=== PATIENT | male | born 1980 | race Caucasian/White ===

== ENCOUNTER 2018-08-29 16:22 | Emergency (ER) | payer SELFPAY ==
[~2018-08-29] VITALS: Ht 198.1 cm; Wt 74.4 kg
[~2018-08-29 16:22] MED LIST: ALPR0.25 PO
[2018-08-29] MEDS ORDERED: ASPIRIN 81 MG TAB.CHEW PO ONE (16:30)
[2018-08-29 16:31] VITALS: BP 126/79
--- NOTE | 2018-08-29 16:41 | PHYS DOC ---
Past History Past Medical History: No Pertinent History (JULIANA HARRIS DO) Past Medical History: Bronchitis (FAMILIA ABDI MD) Past Surgical History: No Surgical History (JULIANA HARRIS DO) Smoking: Cigarettes, Greater than 1 pack/day Alcohol Use: Heavy Drug Use: Marijuana (JULIANA HARRIS DO) Adult General Chief Complaint Chief Complaint: CHEST PAIN HPI HPI Patient is a 38-year-old male presents with chest discomfort for the past 5 days. It has been waxing and waning in nature. There is a respirophasic component to it. Left chest. No radiation. Increased cough. No recent travel, no known trauma, no known hypercoagulable state. Cough does make the discomfort worse. Nothing seems to make it better. (JULIANA HARRIS DO) Review of Systems Review of Systems Constitutional: Denies fever or chills [] Eyes: Denies change in visual acuity, redness, or eye pain [] HENT: Denies nasal congestion or sore throat [] Respiratory: Denies cough or shortness of breath [] Cardiovascular: No additional information not addressed in HPI [] GI: Denies abdominal pain, nausea, vomiting, bloody stools or diarrhea [] : Denies dysuria or hematuria [] Musculoskeletal: Denies back pain or joint pain [] Integument: Denies rash or skin lesions [] Neurologic: Denies headache, focal weakness or sensory changes [] Endocrine: Denies polyuria or polydipsia [] All other systems were reviewed and found to be within normal limits, except as documented in this note. (JULIANA HARRIS DO) Current Medications Current Medications Current Medications Medications (Trade) Dose Ordered Sig/Monika Start Time Stop Time Status Last Admin Dose Admin Aspirin (Children'S Aspirin) 324 mg 1X ONCE 08/29/18 16:30 08/29/18 16:31 UNV (JULIANA HARRIS DO) Allergies Allergies Allergies Coded Allergies Type Severity Reaction Last Updated Verified No Known Drug Allergies 03/19/14 No (JULIANA HARRIS DO) Physical Exam Physical Exam Constitutional: Well developed, well nourished, mild discomfort, non-toxic appearance. [] HENT: Normocephalic, atraumatic, bilateral external ears normal, oropharynx moist, no oral exudates, nose normal. [] Eyes: PERRLA, EOMI, conjunctiva normal, no discharge. [] Neck: Normal range of motion, no tenderness, supple, no stridor. [] Cardiovascular:Heart rate regular rhythm, no murmur [] Lungs & Thorax: Bilateral breath sounds clear to auscultation, tenderness to palpation in the left chest, midaxillary line, third intercostal space. This re- creates his pain. [] Abdomen: Bowel sounds normal, soft, no tenderness, no masses, no pulsatile masses. [] Skin: Warm, dry, no erythema, no rash. [] Back: No tenderness, no CVA tenderness. [] Extremities: No tenderness, no cyanosis, no clubbing, ROM intact, no edema. [] Neurologic: Alert and oriented X 3, normal motor function, normal sensory function, no focal deficits noted. [] Psychologic: Affect normal, judgement normal, mood normal. [] (JULIANA HARRIS DO) EKG EKG EKG shows a sinus rhythm at 83 bpm, normal axis, QTC 414 ms, no ST elevations.[] (JULIANA HARRIS DO) Radiology/Procedures Radiology/Procedures [] (JULIANA HARRIS DO) Radiology/Procedures My interpretation chest x-ray shows bilateral scarring, COPD emphysematous changes. CT chest shows COPD/emphysema changes. No obvious pulmonary embolism. Does have pleural thickening and scarring at apexes. No significant change from CT 11:30 at 2014. See formal reports when available. (FAMILAI ABDI MD) Course & Med Decision Making Course & Med Decision Making Pertinent Labs and Imaging studies reviewed. (See chart for details) ED course: Patient arrived, was placed in bed, and tolerated exam well. He was transferred to and from radiology with any complications. He reported feeling better after the aspirin. Patient care is endorsed to the nighttime physician at [address] chest angiogram pending. Discussed findings available and need for CT with patient and his .[] (JULIANA HARRIS DO) Course & Med Decision Making Offered admission for patient patient declines admission. Encouraged patient to follow-up primary care. Patient strongly advised to quit smoking. Discussed CT f indings and chest x-ray findings. We'll treat patient for bronchitis and pleurisy at this time. Patient encouraged take a daily aspirin. Patient take prednisone 50 mg day for 5 days. Take his Zithromax 250 a day. Patient uses MDI 2 puffs 4 times a day. Patient to continue Tylenol and ibuprofen for pain. Patient strongly encouraged to stop smoking. Patient encouraged to get out inez ent stress testing. Patient encourage return anytime if he wishes to complete cardiac observation and admission. Reviewed cardiac history appearance father at age 64 liver failure, mother age 65 due to breast cancer. Re-exam shows scattered wheezes. Still has some pleuritic pain with deep breaths and cough. No cording in legs. Monitor shows a normal sinus rhythm. Patient denies any history of pulmonary embolisms or DVTs with him or family members. Pt. insistent of discharge seems aware of risks. Impression 1. Chest wall pain-pleurisy 2. COPD/emphysema 3. Tobacco use 4. Mild elevation of white count 13.3 5. Elevated d-dimer 1.79 6. Alcohol use- (FAMILIA ABDI MD) Dragon Disclaimer Dragon Disclaimer This electronic medical record was generated, in whole or in part, using a voice recognition dictation system. (JULIANA HARRIS DO) Departure Departure: Referrals: PCP,NO (PCP) Scripts Prednisone (PREDNISONE) 50 Mg Tablet 50 MG PO DAILY for bronchitis and pleurisy for 5 Days, #5 TAB Prov: FAMILIA ABDI MD 08/29/18 Azithromycin (ZITHROMAX) 250 Mg Tablet 250 MG PO DAILY for ANTI-BIOTIC for 5 Days, #5 TAB 0 Refills Prov: FAMILIA ABDI MD 08/29/18 Discharge Summary Visit Information Final Diagnosis Problems Medical Problems: (1) Bronchitis Status: Acute (2) Chest wall pain Status: Acute (FAMILIA ABDI MD) Brief Hospital Course Allergies Allergies Coded Allergies Type Severity Reaction Last Updated Verified No Known Drug Allergies 03/19/14 No Vital Signs Vital Signs Date Time Temp Pulse Resp B/P (MAP) Pulse Ox O2 Delivery O2 Flow Rate FiO2 08/29/18 16:31 98.5 86 20 96 Room Air Lab Results Laboratory Tests Test 08/29/18 16:42 08/29/18 17:10 08/29/18 17:30 White Blood Count 13.3 x10^3/uL (4.0-11.0) Red Blood Count 4.71 x10^6/uL (4.30-5.70) Hemoglobin 15.4 g/dL (13.0-17.5) Hematocrit 45.7 % (39.0-53.0) Mean Corpuscular Volume 97 fL (79-100) Mean Corpuscular Hemoglobin 33 pg (25-35) Mean Corpuscular Hemoglobin Concent 34 g/dL (31-37) Red Cell Distribution Width 13.8 % (11.5-14.5) Platelet Count 351 x10^3/uL (140-400) Neutrophils (%) (Auto) 70 % (31-73) Lymphocytes (%) (Auto) 20 % (24-48) Monocytes (%) (Auto) 8 % (0-9) Eosinophils (%) (Auto) 1 % (0-3) Basophils (%) (Auto) 1 % (0-3) Neutrophils # (Auto) 9.3 x10^3uL (1.8-7.7) Lymphocytes # (Auto) 2.7 x10^3/uL (1.0-4.8) Monocytes # (Auto) 1.1 x10^3/uL (0.0-1.1) Eosinophils # (Auto) 0.1 x10^3/uL (0.0-0.7) Basophils # (Auto) 0.2 x10^3/uL (0.0-0.2) Prothrombin Time 10.4 SEC (9.4-11.4) Prothromb Time International Ratio 1.0 (0.9-1.1) D-Dimer (Melba) 1.79 mg/L (0.00-0.50) Sodium Level 138 mmol/L (136-145) Potassium Level 4.0 mmol/L (3.5-5.1) Chloride Level 103 mmol/L (98-107) Carbon Dioxide Level 26 mmol/L (21-32) Anion Gap 9 (6-14) Blood Urea Nitrogen 10 mg/dL (8-26) Creatinine 0.8 mg/dL (0.7-1.3) Estimated GFR (Cockcroft-Gault) 107.6 BUN/Creatinine Ratio 13 (6-20) Glucose Level 81 mg/dL (70-99) Calcium Level 9.5 mg/dL (8.5-10.1) Magnesium Level 1.9 mg/dL (1.8-2.4) Total Bilirubin 0.3 mg/dL (0.2-1.0) Aspartate Amino Transf (AST/SGOT) 21 U/L (15-37) Alanine Aminotransferase (ALT/SGPT) 22 U/L (16-63) Alkaline Phosphatase 70 U/L (46-116) Troponin I Quantitative < 0.017 ng/mL (0-0.055) YI-Tpr-Y-Type Natriuretic Peptide 64 pg/mL (0-124) Total Protein 8.0 g/dL (6.4-8.2) Albumin 3.9 g/dL (3.4-5.0) Albumin/Globulin Ratio 1.0 (1.0-1.7) Lipase 107 U/L (73-393) Urine Collection Type Unknown Urine Color Straw Urine Clarity Clear Urine pH 5.5 Urine Specific Collins <=1.005 Urine Protein Neg (NEG-TRACE) Urine Glucose (UA) Neg mg/dL (NEG) Urine Ketones (Stick) Neg mg/dL (NEG) Urine Blood Neg (NEG) Urine Nitrite Neg (NEG) Urine Bilirubin Neg (NEG) Urine Urobilinogen Dipstick 0.2 mg/dL (0.2 mg/dL) Urine Leukocyte Esterase Neg (NEG) Urine RBC 0 /HPF (0-2) Urine WBC 0 /HPF (0-4) Urine Squamous Epithelial Cells Occ /LPF Urine Bacteria 0 /HPF (0-FEW) Urine Opiates Screen Neg (NEG) Urine Methadone Screen Neg (NEG) Urine Barbiturates Neg (NEG) Urine Phencyclidine Screen Neg (NEG) Urine Amphetamine/Methamphetamine Neg (NEG) Urine Benzodiazepines Screen Neg (NEG) Urine Cocaine Screen Neg (NEG) Urine Cannabinoids Screen Neg (NEG) Urine Ethyl Alcohol Pos (NEG) Ethyl Alcohol Level 189 mg/dL (0-10) Brief Hospital Course Mr. Garcia is a 38 old male who presented with chest wall pain. Declined admission. (FAMILIA ABDI MD) Discharge Information Condition at Discharge: Improved, Stable Disposition/Orders: D/C to Home Dischare Medications Current Medications Aspirin (Children'S Aspirin) 324 mg 1X ONCE PO Last administered on 08/29/18at 16:41; Start 08/29/18 at 16:30; Stop 08/29/18 at 16:46; Status DC Iohexol (Omnipaque 350 Mg/ml) 90 ml 1X ONCE IV ; Start 08/29/18 at 17:45; Stop 08/29/18 at 17:46; Status DC Info (Do NOT chart on this entry -- for MONITORING) 1 each PRN DAILY PRN MC SEE COMMENTS; Start 08/29/18 at 17:45; Stop 08/29/18 at 19:33; Status DC Enoxaparin Sodium (Lovenox 60mg Syringe) 60 mg 1X ONCE SQ Last administered on 08/29/18at 18:33; Start 08/29/18 at 18:30; Stop 08/29/18 at 18:31; Status DC Ketorolac Tromethamine (Toradol 30mg Vial) 30 mg 1X ONCE IV Last administered on 08/29/18at 18:32; Start 08/29/18 at 18:30; Stop 08/29/18 at 18:31; Status DC Methylprednisolone Sodium Succinate (SOLU-Medrol 125MG VIAL) 125 mg 1X ONCE IV Last administered on 08/29/18 19:20; Start 08/29/18 at 19:00; Stop 08/29/18 at 19:01; Status DC Albuterol Sulfate (Ventolin Hfa Inhaler) 2 puff 1X ONCE INH Last administered on 08/29/18at 19:21; Start 08/29/18 at 19:00; Stop 08/29/18 at 19:01; Status DC Azithromycin (Zithromax) 500 mg 1X ONCE PO Last administered on 08/29/18at 19:20; Start 08/29/18 at 19:00; Stop 08/29/18 at 19:01; Status DC Active Scripts Active Prednisone 50 Mg Tablet 50 Mg PO DAILY 5 Days Zithromax (Azithromycin) 250 Mg Tablet 250 Mg PO DAILY 5 Days Xanax (Alprazolam) 0.25 Mg Tablet 1 Tab PO DAILY 30 Days (FAMILIA ABDI MD) Dragon Disclaimer This chart was dictated in whole or in part using Voice Recognition software in a busy, high-work load, and often noisy Emergency Department environment. It may contain unintended and wholly unrecognized errors or omissions. (FAMILIA ABDI MD) JULIANA HARRIS DO August 29, 2018 16:41 FAMILIA ABDI MD August 29, 2018 19:11
--- NOTE | 2018-08-29 16:52 | EKG ---
[address] [address] Test Date: 2018-08-29 Test Time: 16:30:12 Pat Name: KARMA CUEVA Department: Room: Gender: M Clinic Director: : [id number] Requested By: JULIANA HARRIS Order Number: [id number] Reading MD: Gulshan Rene MD Measurements Intervals [place] Rate: 83 P: 58 NV: 140 QRS: 90 QRSD: 98 T: 64 QT: 352 QTc: 414 Interpretive Statements SINUS RHYTHM Electronically Signed On 09-23-2018 15:06:19 CDT by Gulshan Rene MD
[2018-08-29 16:55] LABS: BASO # 0.2 x10^3/uL (0.0-0.2); BASO % 1 % (0-3); EOS # 0.1 x10^3/uL (0.0-0.7); EOS % 1 % (0-3); HEMATOCRIT 45.7 % (39.0-53.0); HEMOGLOBIN 15.4 g/dL (13.0-17.5); LYMPH # 2.7 x10^3/uL (1.0-4.8); LYMPH % 20 % (24-48); MEAN CORPUSCULAR HEMOGLOBIN 33 pg (25-35); MEAN CORPUSCULAR HGB CONC 34 g/dL (31-37); MEAN CORPUSCULAR VOLUME 97 fL (79-100); MONO # 1.1 x10^3/uL (0.0-1.1); MONO % 8 % (0-9); NEUT # 9.3 x10^3uL (1.8-7.7); NEUT % 70 % (31-73); PLATELET COUNT 351 x10^3/uL (140-400); RED BLOOD COUNT 4.71 x10^6/uL (4.30-5.70); RED CELL DISTRIBUTION WIDTH 13.8 % (11.5-14.5); WHITE BLOOD COUNT 13.3 x10^3/uL (4.0-11.0)
[2018-08-29 17:16] LABS: ALBUMIN 3.9 g/dL (3.4-5.0); CALCIUM 9.5 mg/dL (8.5-10.1); CREATININE 0.8 mg/dL (0.7-1.3); GFR 107.6; MAGNESIUM 1.9 mg/dL (1.8-2.4); TOTAL BILIRUBIN 0.3 mg/dL (0.2-1.0)
[2018-08-29 17:30] LABS: BACTERIA,URINE 0 /HPF (0-FEW); BILIRUBIN,URINE NEG (NEG); CLARITY,URINE CLEAR; COLOR,URINE STRAW; GLUCOSE,URINE NEG (NEG); NITRITE,URINE NEG (NEG); RBC,URINE 0 /HPF (0-2); SQUAMOUS EPITHELIAL CELL,UR OCC /LPF; UROBILINOGEN,URINE 0.2 mg/dL (0.2 mg/dL); WBC,URINE 0 /HPF (0-4)
[2018-08-29 17:32] LABS: BARBITURATES NEG (NEG); BENZODIAZEPINES NEG (NEG); CANNABINOIDS NEG (NEG); COCAINE NEG (NEG); METHADONE NEG (NEG); OPIATES NEG (NEG); PHENCYCLIDINE NEG (NEG)
[2018-08-29 17:40] LABS: AMPHETAMINE/METHAMPHETAMINE NEG (NEG)
[2018-08-29] MEDS ORDERED: CONTRAST GIVEN MC PRN (17:45)
[2018-08-29] MEDS ORDERED: IOHEXOL 350 MG/ML 100 ML VIAL. IV ONE (17:45)
--- NOTE | 2018-08-29 18:06 | RAD ---
CHEST PA LATERAL History: Chest pain.. Its with 03/19/2014 image, no available report. FINDINGS: There is no enlargement of the heart size. No pneumothorax. There appears to be some hyperexpansion of both lungs suggesting emphysema. There is also irregular pleural thickening at the lung apices bilaterally, most likely due to mild scarring. Note this appears similar to what was seen on prior CT chest of 03/19/2014. No evidence of infiltrate. No evidence of pleural effusion. IMPRESSION: 1. There appears to be some hyperexpansion or emphysema both lungs. 2. Biapical pleural thickening, appears stable and most likely due to scarring. 3. No acute appearing consolidating infiltrate. Electronically signed by: Leonardo Puente MD (08/29/2018 6:03 PM) [facility]
[2018-08-29] MEDS ORDERED: ENOXAPARIN ** NOTE DOSE ** SYRINGE SQ ONE (18:30)
[2018-08-29] MEDS ORDERED: KETOROLAC 30 MG/ML VIAL. IV ONE (18:30)
--- NOTE | 2018-08-29 18:42 | RAD ---
CT ANGIOGRAPHY CHEST Indication: Chest pain. Elevated d-dimer. Shortness of breath. Technique: After intravenous contrast administration, CT imaging was performed of the chest. MIP reconstructions were obtained. Exposure: One or more of the following individualized dose reduction techniques were utilized for this examination: 1. Automated exposure control 2. Adjustment of the mA and/or kV according to patient size 3. Use of iterative reconstruction technique. No evidence of a pulmonary embolism. The thoracic aorta demonstrates no evidence of aneurysm, opacification is limited but no obvious dissection. Proximal great vessels appear to be grossly patent. No evidence of thyroid lesion. No significant lymph node enlargement. No pericardial effusion. No evidence of pleural effusion. There is mild biapical pleural thickening, with biapical interstitial markings, most likely due to mild scarring. Note that some limited images are available from a CT chest of March 19, 2014, demonstrated a similar appearance of the lung apices. There appears to be air trapping. Trachea and central main stem bronchi are patent. No consolidated infiltrate is seen. Vertebral body height is maintained, mild degenerative changes of the spine. Limited scans through the upper abdomen demonstrate no obvious acute finding. IMPRESSION: 1. No evidence of pulmonary embolism or other acute abnormality. 2. Chronic biapical changes appears similar. Electronically signed by: Leonardo Puente MD (08/29/2018 6:39 PM) [facility]
[2018-08-29] MEDS ORDERED: ALBUTEROL SULFATE 8GM INHALER. INH ONE (19:00)
[2018-08-29] MEDS ORDERED: AZITHROMYCIN 250 MG TABLET. PO ONE (19:00)
[2018-08-29] MEDS ORDERED: methylPREDNISolone SOD SUCC PF 125 MG/2 ML VIAL. IV ONE (19:00)
[2018-08-29] MEDS ORDERED: AZIT250T PO (19:02)
[2018-08-29] MEDS ORDERED: PRED50TA PO (19:02)
== END 2018-08-29 19:29 | disposition home or self-care (01) ==
LOC: ER 16:22
DX: R09.1 Pleurisy (principal); J40 Bronchitis, not specified as acute or chronic; R79.1 Abnormal coagulation profile; D72.828 Other elevated white blood cell count; F10.20 Alcohol dependence, uncomplicated; F17.210 Nicotine dependence, cigarettes, uncomplicated; Y90.6 Blood alcohol level of 120-199 mg/100 ml
CPT/HCPCS: 36415; 71046; 71275; 80053; 80307; 81001; 83690; 83735; 83880; 84443; 84484; 85025; 85379; 85610; 93005; 94640; 96372; 96374; 96375; 99285; G0480; J0456; J1650; J1885; J2930; J7613